=== PATIENT | male | born 1955 | race Caucasian/White ===

== ENCOUNTER 2018-07-17 09:51 | Emergency (ER) | payer OTHER ==
[~2018-07-17] VITALS: Ht 182.9 cm; Wt 108.9 kg
[2018-07-17] MEDS ORDERED: FORTAMET500 MG (10:08)
[2018-07-17] MEDS ORDERED: QUINAPRIL HCL40 MG (10:09)
== END 2018-07-17 15:00 | disposition home or self-care (01) ==
LOC: ER 09:51
DX: K29.00 Acute gastritis without bleeding (principal)

== ENCOUNTER 2018-07-23 08:47 | Emergency (ER) | payer OTHER ==
[~2018-07-23] VITALS: Ht 182.9 cm; Wt 10.0 kg
[~2018-07-23 08:47] MED LIST: FORTAMET500 MG; QUINAPRIL HCL40 MG
[2018-07-23] MEDS ORDERED: CELECOXIB200 MG PO (14:43)
== END 2018-07-23 14:51 ==
LOC: ER 08:47
DX: S43.421A Sprain of right rotator cuff capsule, initial encounter (principal); X58.XXXA Exposure to other specified factors, initial encounter; Y93.89 Activity, other specified; Y92.89 Other specified places as the place of occurrence of the external cause; Y99.8 Other external cause status; E11.65 Type 2 diabetes mellitus with hyperglycemia